=== PATIENT | female | born 1940 | race Caucasian/White ===

== ENCOUNTER 2019-01-25 15:19 | Emergency (ER) | payer MEDICARE ==
[2019-01-25] MEDS ORDERED: Sulfamethoxazole/Trimethoprim 800-160 MG Tab ONE (15:20)
--- NOTE | 2019-01-25 15:32 | EDM.PDOC ---
ED HPI GENERAL MEDICAL PROBLEM - General Chief Complaint: Head Injury Stated Complaint: FALL NECK PAIN Time Seen by Provider: 01/25/19 15:25 Source of Information: Reports: Patient, Family, RN History Limitations: Reports: No Limitations - History of Present Illness INITIAL COMMENTS - FREE TEXT/NARRATIVE: 78 yr female presents to ER from ambulance. She was sitting on a cooler and fell backward off of the deck, about 3 feet. States pain to neck. She is alert , and oriented and neck brace in place, She is taking ASA and PVD medication, statin, amlodipine, Metformin and metoprolol. She has a history of CAD, PVD and diabetic. Her is here and pt states he has some dementia starting. Her daughter is here too. ED ROS GENERAL - Review of Systems Review Of Systems: See Below Constitutional: Denies: Fever, Chills HEENT: Reports: Glasses Respiratory: Reports: No Symptoms Cardiovascular: Reports: No Symptoms, Other (CAD and PVD, pacemaker 2014, June and June carotid artery surgery.) Endocrine: Reports: Other (diabetes Type 2) GI/Abdominal: Reports: Nausea, Other (vomitted at scene, none on ambulance.) Musculoskeletal: Reports: Neck Pain, Other (head pain.) Skin: Reports: Other (no bleeding, no bruising noted.) Neurological: Reports: Headache, Other (hx of hip degeneration and takes awhile to change position). Denies: Confusion, Trouble Speaking Immunologic: Reports: Other ([place]) ED EXAM, HEAD INJURY - Physical Exam Exam: See Below Exam Limited By: No Limitations General Appearance: Alert, No Apparent Distress Head: No: Scalp Lacerations, Active Bleeding, Facial Ecchymosis, Facial Lacerations Nexus Criteria: Posterior, Midline Cervical Tenderness. No: Altered Level of Consciousness Ears: Hearing Grossly Normal Nose: Normal Inspection, Normal Mucousa Throat/Mouth: Normal Inspection, Normal Voice, No Airway Compromise Neck: Other (cervical spine collar on) Respiratory: No Respiratory Distress, Lungs Clear, Normal Breath Sounds Cardiovascular: Normal Peripheral Pulses, Regular Rate, Rhythm GI/Abdominal Exam: Normal Bowel Sounds, Soft, Non-Tender, Other (no more nausea or vomitting) Extremities: Normal Inspection, Non-Tender Neurologic: Alert, Normal Mood/Affect, Oriented x 3 Skin: Normal Color, Warm/Dry - [place] Coma Score Best Eye Response (Elisa): (4) Open Spontaneously Best Verbal Response ([place]isa): (5) Oriented Best Motor Response ([place]): (6) Obeys Commands Course - Vital Signs Last Recorded V/S: Last Vital Signs Temp 97.0 F 01/25/19 15:33 Pulse 84 01/25/19 15:33 Resp 16 01/25/19 15:33 BP 175/79 H 01/25/19 15:33 Pulse Ox 98 01/25/19 15:33 - Orders/Labs/Meds Orders: Active Orders 24 hr Category Date Time Status CULTURE URINE [RM] Stat Lab 01/25/19 17:00 Received Labs: Laboratory Tests 01/25/19 01/25/19 01/25/19 Range/Units 16:00 16:00 17:00 WBC 16.0 H (4.0-11.0) K/uL RBC 5.15 (3.80-5.80) M/uL Hgb 15.7 (11.5-16.5) g/dL Hct 46.8 (37.0-47.0) % MCV 91 (76-96) fL MCH 30.5 (27.0-32.0) pg MCHC 33.5 (31.0-35.0) g/dL RDW 15.0 (11.0-16.0) % Plt Count 254 (150-500) K/uL MPV 9.9 (6.0-10.0) fL Neut % (Auto) 81.1 H (45.0-70.0) % Lymph % (Auto) 12.3 L (20.0-40.0) % [place] % (Auto) 5.3 (3.0-10.0) % Eos % (Auto) 1.1 (1.0-5.0) % Baso % (Auto) 0.2 (0.0-0.5) % Neut # (Auto) 13.02 H (2.00-7.50) K/uL Lymph # (Auto) 1.97 (1.50-4.00) K/uL [place] # (Auto) 0.85 H (0.20-0.80) K/uL Eos # (Auto) 0.17 (0.04-0.40) K/uL Baso # (Auto) 0.03 (0.02-0.10) K/uL Sodium 142 (136-145) mmol/L Potassium 4.3 (3.5-5.1) mmol/L Chloride 105 (98-107) mmol/L Carbon Dioxide 25.7 (21.0-32.0) mmol/L Anion Gap 15.6 H (5.0-15.0) mmol/L BUN 22 (8-26) mg/dL Creatinine 0.88 (0.55-1.02) mg/dL Est Cr Clr Drug Dosing 40.33 mL/min Estimated GFR (MDRD) > 60 (>60) MLS/MIN BUN/Creatinine Ratio 25.0 (6-25) Glucose 128 H (74-100) mg/dL Calcium 9.5 (8.5-10.1) mg/dL Total Bilirubin 0.5 (0.0-1.0) mg/dL AST 42 H (15-37) U/L ALT 55 (12-78) U/L Alkaline Phosphatase 81 (46-116) U/L Total Protein 8.1 (6.4-8.2) g/dL Albumin 3.6 (3.4-5.0) g/dL Globulin 4.5 H (2.2-4.2) g/dL Albumin/Globulin Ratio 0.8 (0.8-2.0) Urine Color Yellow Urine Appearance Clear (CLEAR) Urine pH 6.5 (5.0-8.0) Ur Specific [place] 1.020 (1.003-1.030) Urine Protein 100 H (NEGATIVE) mg/dL Urine Glucose (UA) Negative (NEGATIVE) mg/dL Urine Ketones 15 H (NEGATIVE) mg/dL Urine Occult Blood Large H (NEGATIVE) Urine Nitrite Positive H (NEGATIVE) Urine Bilirubin Negative (NEGATIVE) Urine Urobilinogen 0.2 (0.2-1.0) E.U./dL Ur Leukocyte Esterase Trace H (NEGATIVE) Urine RBC 0-5 H /HPF Urine WBC 20-30 H /HPF Ur Squamous Epith Cells Few /HPF Urine Bacteria Moderate H /HPF Meds: Medications Discontinued Medications Generic Name Dose Route Start Last Admin Trade Name Freq PRN Reason Stop Dose Admin Acetaminophen 650 mg 01/25/19 16:06 01/25/19 16:07 Tylenol PO 01/25/19 16:07 650 mg NOW ONE Administration Acetaminophen Confirm 01/25/19 16:14 Tylenol Administered 01/25/19 16:15 Dose 650 mg .ROUTE .STK-MED ONE Sodium Chloride 1,000 mls @ 125 mls/hr 01/25/19 16:00 01/25/19 15:55 Normal Saline IV 125 mls/hr ASDIRECTED [facility] Administration - Re-Assessments/Exams Free Text/Narrative Re-Assessment/Exam: 01/25/19 15:59 Report from radiology back and no acute fractures noted, no acute infarct, no mass noted. Labs here for CMP and CBC. IV Nacl at 125/hr. Pt is cool, but alert and responsive. Pain to neck and head continues. Neck brace and back board removed. VSS SpO2 =96%, HR 87. BP 181/85. 01/25/19 16:07 Tylenol 2 tabs PO given. States pain is 3/10. Pain to neck and upper back. ice to area and warm blankets on. 01/25/19 16:44 Pt has middle thoracic back pain. Will x-ray thoracic spine. Arm pain has improved, movement of arm causes back pain. States she does have osteoporosis and should take Calcium w Vitamin D, but isn't at this time. WBC 16 , and neutrophil 81.1, will check U/A. Departure - Departure Time of Disposition: 17:51 Disposition: Home, Self-Care 01 Condition: Good Clinical Impression: UTI (urinary tract infection), Back contusion, Head contusion - Discharge Information *PRESCRIPTION DRUG MONITORING PROGRAM REVIEWED*: Not Applicable *COPY OF PRESCRIPTION DRUG MONITORING REPORT IN PATIENT SACHIN: Not Applicable Instructions: Neck Exercises, Thoracic Strain, Urinary Tract Infection, Adult, [id number], Cervical Sprain, [id number] Referrals: PCP,Unknown [Primary Care Provider] - Forms: ED Department Discharge Care Plan Goals: Take tylenol as needed for back pain. Return to hospital or ER with any questions or concerns. - My Orders Last 24 Hours: My Active Orders 01/25/19 17:00 CULTURE URINE [RM] Stat - Assessment/Plan Last 24 Hours: My Active Orders 01/25/19 17:00 CULTURE URINE [RM] Stat Plan: Reviewed results of head and neck CT and thoracic spine xray. No fractures and no mass, no infarct. Pain may increase to back, shoulders, neck and head from the fall. Monitor for any severe pain, not controlled with ice/heat and Tylenol. Rest and relax today, Start Bactrim DS 1 tab bid X 7 days with full glass of water. Ice to back and head and neck as needed, may use heat after 24-48 hour. Tylenol as needed. Follow-up with PCP when return to home. RTC or ER if concerns.
[2019-01-25 15:41] VITALS: BP 175/79; PULSE 84
[2019-01-25] MEDS: Sodium Chloride 0.9% 1,000 ML IV SCH (15:55)
[2019-01-25] MEDS: Acetaminophen 325 MG Tab PO ONE (16:07)
[2019-01-25] MEDS ORDERED: Acetaminophen 325 MG Tab ONE (16:14)
--- NOTE | 2019-01-25 19:51 | CT ---
DATE OF SERVICE: 01/25/19 CLINICAL DATA: Fall, injury UNENHANCED BRAIN CT: Multislice acquisition through the brain without IV contrast was performed. No priors. There is diffuse cerebral atrophy. There are periventricular lucencies bilaterally consistent with small vessel ischemic change. No masses or mass effect. No intracranial hemorrhage. No evidence of acute or subacute infarct. No osseous abnormalities. IMPRESSION: No acute intracranial abnormalities. [id number] [facility]
--- NOTE | 2019-01-25 19:54 | CR ---
DATE OF SERVICE: 01/25/19 CLINICAL DATA: back pain THORACIC SPINE: No priors. There is diffuse osteopenia. The vertebral bodies are of average height and in good alignment. No acute fracture or dislocation. No focal lytic or blastic bone lesions. There is degenerative disc disease throughout the thoracic spine. [id number] [facility]
--- NOTE | 2019-01-25 19:58 | CT ---
DATE OF SERVICE: 01/25/19 CLINICAL DATA: fall, injury, neck pain CERVICAL SPINE CT: Multislice axial acquisition from the base of the skull to T3 was performed. Axial images and sagittal and coronal reformations are reviewed. There is diffuse osteopenia. No acute fracture or dislocation. No focal lytic or blastic bone lesions. There is degenerative disc disease throughout the cervical spine, greatest at the C4-5, C5-6, and C6-7 levels. 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 There is moderate central spinal stenosis at the C4-5 and C5-6 levels. There is mild facet joint hypertrophy at multiple levels. There is encroachment of the neural foramen bilaterally at multiple levels. There are degenerative changes involving the atlantoaxial articulation. No other significant findings. The visualized lung apices are clear. [id number] [facility]
== END 2019-01-25 17:51 | disposition home or self-care (01) ==
LOC: LB.ED 15:19
DX: S20.229A Contusion of unspecified back wall of thorax, initial encounter (principal); S00.93XA Contusion of unspecified part of head, initial encounter; N39.0 Urinary tract infection, site not specified; I25.10 Atherosclerotic heart disease of native coronary artery without angina pectoris; I73.9 Peripheral vascular disease, unspecified; E11.9 Type 2 diabetes mellitus without complications; W17.89XA Other fall from one level to another, initial encounter
CPT/HCPCS: 36415; 70450; 72070; 72125; 80053; 81001; 85025; 87086; 87088; 87186; 96360; 96361; 99283; 99283-25; A0425; A0429; A9270-GY; J7030